=== PATIENT | female | born 1995 | race Two or more races ===

== ENCOUNTER 2018-12-02 17:36 | Emergency (ER) | payer OTHER ==
[~2018-12-02] VITALS: Ht 165.1 cm; Wt 90.7 kg
[2018-12-02 20:50] VITALS: BP 123/76
== END 2018-12-02 21:52 | disposition home or self-care (01) ==
LOC: EEVIPCON 17:49 → ER 17:49
DX: Z46.6 Encounter for fitting and adjustment of urinary device (principal); N39.0 Urinary tract infection, site not specified; Z88.2 Allergy status to sulfonamides
CPT/HCPCS: 51702; 81002